=== PATIENT | male | born 1965 | race Caucasian/White ===

== ENCOUNTER → 2017-11-30 | Outpatient (CLI) | payer MEDICARE ==
[2017-11-30 09:32] LABS: CALCIUM 8.7 mg/dL (8.5-10.1); CREATININE 1.2 mg/dL (0.7-1.3); GFR 63.3; POTASSIUM 4.6 mmol/L (3.5-5.1)
== END | disposition home or self-care (01) ==
LOC: LAB 07:29
PROVIDERS: ATTEND Internal Medicine Interventional Cardiology
DX: I25.10 Atherosclerotic heart disease of native coronary artery without angina pectoris (principal); E78.4 Other hyperlipidemia
CPT/HCPCS: 36415; 80048; 80061

== ENCOUNTER → 2018-11-23 | Outpatient (CLI) | payer MEDICARE ==
[~2018-11-23] MED LIST: IOHEXOL 240 MG/ML 50ML VIAL. ONE; IOHEXOL 300 MG/ML 75 ML VIAL. IV ONE
[2018-11-23 09:53] LABS: CREATININE 1.1 mg/dL (0.7-1.3); GFR 69.8
--- NOTE | 2018-11-23 15:36 | RAD ---
CT ABD PELV W/ORAL IV CONTRAST Indication: Change in bowel habits Technique: Postcontrast CT imaging was performed of the abdomen and pelvis, multiplanar reconstruction images submitted. Oral contrast was also given. One or more of the following individualized dose reduction techniques were utilized for this examination: 1. Automated exposure control 2. Adjustment of the mA and/or kV according to patient size 3. Use of iterative reconstruction technique. Comparison: Noncontrast exam September 23, 2016 Findings: There is no new abnormality of the limited visualized lung bases. There has been a median sternotomy. There is stable left adrenal nodule about 1.8 cm. Both kidneys enhance, no hydronephrosis. Gallbladder is present without obvious intraluminal abnormality by CT. There is no new focal abnormality of the spleen, pancreas, liver. There is no free air or free fluid. There is variable stool retention throughout colon. Small bowel is not significantly dilated. Mild small bowel thickening in the left abdomen is not excluded although this segment of bowel not opacified with oral contrast. Normal appendix is visualized. There is atherosclerotic calcification of the abdominal aorta, also of the iliac arteries bilaterally at which there are likely stenoses probably greater on the right. There are again fat-containing inguinal hernias bilaterally greater on the right, no internal bowel. There is mild anterior urinary bladder wall thickening. IMPRESSION: 1. There is variable stool retention throughout the colon. Mild small bowel wall thickening of the left abdomen as could be seen with enteritis is not excluded although could be related to peristalsis and nondistention during exam. 2. There is stable left adrenal nodule. 3. 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 4. There are again fat-containing inguinal hernias bilaterally greater on the right, no internal bowel. 5. There is mild nonspecific anterior urinary bladder wall thickening. Electronically signed by: Yoan Romero MD (11/23/2018 3:32 PM) [email or web address]
== END | disposition home or self-care (01) ==
LOC: CT 09:01
PROVIDERS: ATTEND Family Medicine
DX: K59.09 Other constipation (principal); I70.8 Atherosclerosis of other arteries; K40.20 Bilateral inguinal hernia, without obstruction or gangrene, not specified as recurrent; N32.89 Other specified disorders of bladder
CPT/HCPCS: 36415; 74177; 82565; Q9966; Q9967

== ENCOUNTER → 2019-03-01 | Outpatient (CLI) | payer MEDICARE ==
[2019-03-01 09:13] LABS: ALBUMIN 3.3 g/dL (3.4-5.0); ALBUMIN/GLOBULIN RATIO 0.8 (1.0-1.7); CALCIUM 9.2 mg/dL (8.5-10.1); CREATININE 1.1 mg/dL (0.7-1.3); GFR 69.8; POTASSIUM 4.5 mmol/L (3.5-5.1); TOTAL BILIRUBIN 0.3 mg/dL (0.2-1.0); TOTAL PROTEIN 7.3 g/dL (6.4-8.2)
== END | disposition home or self-care (01) ==
LOC: LAB 08:28
PROVIDERS: ATTEND Internal Medicine Interventional Cardiology
DX: E78.5 Hyperlipidemia, unspecified (principal); I25.10 Atherosclerotic heart disease of native coronary artery without angina pectoris
CPT/HCPCS: 36415; 80053; 80061

== ENCOUNTER → 2019-04-29 | Outpatient (CLI) | payer MEDICARE ==
--- NOTE | 2019-04-29 17:53 | RAD ---
3 phase bone scan 04/29/2019 CLINICAL HISTORY: Nonhealing ulcer involving the right second toe. TECHNIQUE: After the intravenous administration of 25 mCi of technetium 99m MDP, flow and immediate blood pool images of both feet and ankles were performed using the gamma camera. Delayed images were obtained at 3 hours using the gamma camera. FINDINGS: No relevant priors are available for comparison. Increased flow and blood pool of the radionuclide in the region of the mid/distal right second toe is seen. Increased activity is seen in this region on the three-hour delayed images. These findings are concerning for osteomyelitis. 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 IMPRESSION: Positive three phase bone scan involving the right second toe concerning for osteomyelitis. Electronically signed by: Vinicius Brooks MD (04/29/2019 5:50 PM) [email or web address]
== END | disposition home or self-care (01) ==
LOC: NM 10:09
PROVIDERS: ATTEND Emergency Medicine Undersea and Hyperbaric Medicine
DX: E11.621 Type 2 diabetes mellitus with foot ulcer (principal); L97.519 Non-pressure chronic ulcer of other part of right foot with unspecified severity; I10 Essential (primary) hypertension; Z79.01 Long term (current) use of anticoagulants
CPT/HCPCS: 78315; A9503

== ENCOUNTER → 2021-01-01 | Outpatient (CLI) | payer MEDICARE ==
--- NOTE | 2021-01-03 09:57 | RAD ---
Exam Date: 01/01/2021 11:[address] LOW DOSE LUNG SCREEN Indication: Reason: FORMER SMOKER FOR 40 YEARS. QUIT 3 YEARS AGO. / Spl. Instructions: / History: TECHNIQUE: Low-dose CT scan of the chest was performed without intravenous contrast. One or more of the following dose reduction techniques were utilized: *Automated exposure control (AEC) *Adjustment of mA and/or kV according to patient size *Use of iterative reconstruction technique *CT scan done according to ALARA, or ALARA/IMAGE GENTLY COMPARISON: CT abdomen and pelvis from November 23, 2018 FINDINGS: Mild biapical scarring is noted. Calcified granulomas are seen in the lungs. There is a 3 mm noncalcified nodule in the right lung on image 121 series 7. The central airways are patent. There is no focal consolidation, pleural effusion or pneumothorax. The visualized thyroid gland is within normal limits. No lymphadenopathy is seen. The heart is normal in size without pericardial effusion. Coronary artery calcifications are present . Aorta is normal in caliber with atherosclerotic calcifications. Images of the upper abdomen demonstrate a left adrenal nodule measuring approximately 1.8 cm, not sig nificantly changed. Small left renal calcifications may represent nonobstructing calculi and/or vascu lar calcifications. Degenerative changes are seen in the spine. IMPRESSION: 3 mm right lung nodule. No other discrete lung nodules identified. LUNG RADS: Category 2: Benign appearance or behavior. Follow up: Continue annual screening with LDCT in 12 months. Electronically signed by: Antoine Anderson MD (01/01/2021 1:47 PM) [id number]
== END ==
LOC: CT 11:27
PROVIDERS: ATTEND Family Medicine
DX: Z12.2 Encounter for screening for malignant neoplasm of respiratory organs (principal); R91.1 Solitary pulmonary nodule; Z87.891 Personal history of nicotine dependence
CPT/HCPCS: 71271

== ENCOUNTER → 2021-10-27 | Outpatient (CLI) | payer MEDICARE ==
--- NOTE | 2021-10-27 16:30 | RAD ---
EXAM: PA and Lateral Views of the Chest DATE: 10/27/2021 3:54 PM INDICATION: Reason: COUGH FOR 3 WEEKS / Spl. Instructions: / History: COMPARISON: No Prior FINDINGS: The heart is not enlarged. Mediastinal and hilar contours are normal. Patchy right infrahilar and lung base airspace opacities. No pleural effusion or pneumothorax. IMPRESSION: Patchy right infrahilar and lung base airspace opacities, likely consolidative process as pneumonia. Atelectasis could also have this appearance. Imaging follow-up to resolution is recommended given the nodularity of the peripheral right lung base opacities. Electronically signed by: Fermín Lin MD (10/27/2021 4:28 PM) [facility]
== END ==
LOC: RAD 15:48
PROVIDERS: ATTEND Family Medicine
DX: R91.8 Other nonspecific abnormal finding of lung field (principal); J18.9 Pneumonia, unspecified organism; R05.9 Cough, unspecified
CPT/HCPCS: 71046